=== PATIENT | female | born 1950 | race Caucasian/White ===

== ENCOUNTER 2017-03-12 11:08 | Emergency (ER) | payer MEDICAID ==
[~2017-03-12] VITALS: Ht 160 cm; Wt 78.0 kg
[~2017-03-12 11:08] MED LIST: ASPI-664 PO; ATOR20TA38 PO; AZIT250T94 PO; DICL100G37 TOP; GUAI-637 PO; LISI-329 PO; LORA10TA3 PO; NAPR-260 PO; NAPR220T30 PO; OXYM15SP34 NASAL; TRAM50TA2 PO
[2017-03-12 11:13] VITALS: Ht 160 cm; Wt 78.0 kg
[2017-03-12] MEDS ORDERED: ONDANSETRON 4 MG INJ IV STA (11:35)
[2017-03-12] MEDS ORDERED: SOD CHLORIDE 0.9% 1,000 ML IV STA (11:35)
[2017-03-12] MEDS ORDERED: KETOROLAC 15 MG INJ IV STA (11:35)
[2017-03-12 12:03] LABS: ADD SCAN DIFF NO
[2017-03-12 12:16] LABS: BASOPHILS % 0.4 % (0.0-2.0); EOSINOPHILS # 0.2 10^3/ul (0.0-0.5); EOSINOPHILS % 2.5 % (0.0-7.0); HEMATOCRIT 38.3 % (37.0-47.0); HEMOGLOBIN 12.7 g/dl (12.0-16.0); LYMPHOCYTES # 2.4 10^3/ul (0.8-2.9); MEAN CORPUSCULAR HEMOGLOBIN 30.5 pg (29.0-33.0); MEAN CORPUSCULAR HGB CONC 33.2 g/dl (32.0-37.0); MEAN CORPUSCULAR VOLUME 92.1 fl (82.0-101.0); MEAN PLATELET VOLUME 9.7 fl (7.4-10.4); MONOCYTE # 0.5 10^3/ul (0.3-0.9); MONOCYTES % 6.4 % (0.0-11.0); NEUTROPHIL # 4.2 10^3/ul (1.6-7.5); NEUTROPHILS % 57.4 % (39.0-77.0); PLATELET COUNT 313 10^3/UL (140-415); RED BLOOD COUNT 4.16 10^6/ul (4.20-5.40); RED CELL DISTRIBUTION WIDTH 12.3 % (11.5-14.5); WHITE BLOOD COUNT 7.3 10^3/ul (4.8-10.8)
[2017-03-12 12:19] LABS: ALANINE AMINOTRANSFERASE 27 IU/L (13-69); ALBUMIN 4.7 g/dl (3.3-4.9); ALBUMIN/GLOBULIN RATIO 1.17; ALKALINE PHOSPHATASE 65 IU/L (42-121); ANION GAP 15 (8-16); ASPARTATE AMINO TRANSFERASE 33 IU/L (15-46); BILIRUBIN,INDIRECT 0.2 mg/dl (0-1.1); BILIRUBIN,TOTAL 0.2 mg/dl (0.2-1.3); BLOOD UREA NITROGEN 15 mg/dl (7-20); CALCIUM 9.7 mg/dl (8.4-10.2); CARBON DIOXIDE 23 mmol/L (21-31); CHLORIDE 102 mmol/L (97-110); CREATININE 0.74 mg/dl (0.44-1.00); GLUCOSE 115 mg/dl (70-220); POTASSIUM 4.5 mmol/L (3.5-5.1); SODIUM 135 mmol/L (135-144); TOTAL PROTEIN 8.7 g/dl (6.1-8.1)
[2017-03-12 12:25] LABS: ADD UMIC NO; URINE BILIRUBIN (Dip) NEGATIVE (NEGATIVE); URINE BLOOD (Dip) NEGATIVE (NEGATIVE); URINE COLOR LT. YELLOW (YELLOW); URINE GLUCOSE (Dip) NEGATIVE (NEGATIVE); URINE KETONES (Dip) NEGATIVE (NEGATIVE); URINE LEUKOCYTE ESTERASE (Dip) NEGATIVE (NEGATIVE); URINE NITRITE (Dip) NEGATIVE (NEGATIVE); URINE TOTAL PROTEIN (Dip) NEGATIVE (NEGATIVE); URINE UROBILINOGEN (Dip) 0.2 E.U./dL (0.1-1.0)
[2017-03-12 12:35] LABS: TROPONIN-I < 0.012 ng/ml (0.00-0.12)
[2017-03-12] MEDS ORDERED: MELO-109 PO (13:23)
[2017-03-12] MEDS ORDERED: ALPR0.5T PO (13:23)
--- NOTE | 2017-03-12 13:26 | ERD ---
ER Documentation Chief Complaint Date/Time DATE: 03/12/17 TIME: 13:24 Chief Complaint DIZZINESS,ANDRADE,NAUSEA, NECK PAIN X 3 DAYS HPI 66-year-old woman complains of 3 days of dizziness headache nausea as well as sharp nonexertional nonradiating chest pain. She has had all these symptoms in the past usually associated with anxiety, and states she feels anxious today as well. Her chest pain is sharp nonexertional nonradiating and has been intermittent daily for the last 7 days. She has had no neck pain or stiffness, no fevers or chills, no weakness in her arms or legs, no suicidal homicidal ideation. She has been using ibuprofen and Tylenol at home without relief. She also uses aspirin daily. ROS All systems reviewed and are negative except as per history of present illness. Medications Home Meds Active Scripts Meloxicam* (Meloxicam*) 7.5 Mg Tablet, 7.5 MG PO DAILY for PAIN, #20 TAB Prov:ALEA CRAFT MD 03/12/17 Alprazolam* (Xanax*) 0.5 Mg Tab, 0.5 MG PO TID for ANXIETY, #15 TAB Prov:ALEA CRAFT MD 03/12/17 Reported Medications Lisinopril-Hydrochlorothiazide (Lisinopril-HCTZ) 20-25 Mg Tab, 1 TAB PO DAILY, TAB 02/06/15 Discontinued Reported Medications Oxymetazoline Hcl* (Afrin [place]*) 0.05% - 15 Ml [place], 2 SPRAYS NASAL BID, SPRAY to each nostril 02/06/15 Naproxen* (Naproxen*) 220 Mg Tablet, 220 MG PO BID WITH MEALS, TAB 02/06/15 Discontinued Scripts Naproxen* (Naprosyn*) 500 Mg Tablet, 500 MG PO BID Y for PAIN AND/OR INFLAMMATION for 15 Days, #30 TAB 0 Refills Prov:ELLIS GUTIERREZ PA-C 06/28/16 Naproxen* (Naprosyn*) 500 Mg Tablet, 500 MG PO BID Y for PAIN AND/OR INFLAMMATION, #30 TAB Prov:CRISTIAN ANDERS PA-C 02/25/16 Diclofenac Sodium* (Voltaren* Gel) 1% -100 Gm Gel, 2 GM TOP QID, #1 TUB Prov:CRISTIAN ANDERS PA-C 02/25/16 Loratadine* (Loratadine*) 10 Mg Tab, 10 MG PO DAILY for 30 Days, TAB Prov:MARKDIVYA 11/11/15 Guaifenesin (Guaifenesin) 100 Mg/5 Ml Syrup, 200 MG PO Q4H Y for cough for 30 Days Prov:MARKDIVYA 11/11/15 Azithromycin* (Zithromax*) 250 Mg Tab, 250 MG PO DAILY for 5 Days, TAB Prov:BRIGIDDIVYA PEREZ 11/11/15 Atorvastatin Calcium* (Atorvastatin Calcium*) 20 Mg Tab, 40 MG PO HS, #30 3 Refills Prov:ROX PLASCENCIA 08/14/15 Aspirin* (Aspirin* EC) 81 Mg Tabec, 81 MG PO DAILY, #30 3 Refills Prov:ROX PLASCENCIA 08/14/15 Tramadol HCl (Tramadol HCl) 50 Mg Tab, 50 MG PO BID, #20 TAB Prov:LYNDA RIVERO PA-C 08/03/15 Allergies Allergies: Coded Allergies: No Known Allergy (Unverified , 11/11/15) PMhx/Soc Hypertension, anxiety, history of SD, coronary artery disease, dizziness History of Surgery: Yes ("to not have kids") Anesthesia Reaction: No Hx Neurological Disorder: Yes (stroke) Hx Respiratory Disorders: No Hx Cardiac Disorders: Yes ("heart problems" HTN) Hx Psychiatric Problems: No Hx Miscellaneous Medical Probl: Yes Hx Alcohol Use: No Hx Substance Use: No Hx Tobacco Use: No Smoking Status: Never smoker FmHx Family History: coronary disease Physical Exam Vitals Vital Signs Date Time Temp Pulse Resp B/P Pulse Ox O2 Delivery O2 Flow Rate FiO2 03/12/17 13:55 97.9 62 18 110/65 99 Room Air 03/12/17 11:13 98.1 86 18 134/79 99 Physical Exam GENERAL: Well-developed, well-nourished, well-hydrated, anxious HEENT: Moist mucous membranes, pink conjunctiva, no cervical spine tenderness or step-off deformities, no goiter, no jaundice or icterus, extraocular movements intact without pain. No submandibular induration, and no pharyngeal erythema NEURO: Alert and oriented 3, cranial nerves II through XII intact bilaterally, pupils equal round reactive to light, no focal deficits or facial asymmetry, sensation intact distally Strength 5/5 in upper and lower extremities bilaterally CARDIAC: Regular rate and rhythm, no murmurs rubs or gallops LUNGS: Clear bilaterally no wheezing crackles or stridor ABDOMEN: Soft nontender, no guarding, no rigidity, no rebound, no psoas sign no obturator sign. Normoactive bowel sounds SKIN: Warm and dry to touch, no abrasions, contusions, or hematomas, no lacerations, no ecchymosis, no target lesions, and without ulcers EXTREMITIES: No clubbing cyanosis or edema, calves are bilaterally symmetrical, no Homans sign, no popliteal cord sign. Distal pulses equal and bilateral PSYCH: Anxious Result Diagram: 03/12/17 1145 03/12/17 1145 Results 24 hrs Laboratory Tests Test 03/12/17 11:45 White Blood Count 7.310^3/ul Red Blood Count 4.1610^6/ul Hemoglobin 12.7g/dl Hematocrit 38.3% Mean Corpuscular Volume 92.1fl Mean Corpuscular Hemoglobin 30.5pg Mean Corpuscular Hemoglobin Concent 33.2g/dl Red Cell Distribution Width 12.3% Platelet Count 94986^3/UL Mean Platelet Volume 9.7fl Neutrophils % 57.4% Lymphocytes % 33.0% Monocytes % 6.4% Eosinophils % 2.5% Basophils % 0.4% Nucleated Red Blood Cells % 0.0/100WBC Neutrophils # 4.210^3/ul Lymphocytes # 2.410^3/ul Monocytes # 0.510^3/ul Eosinophils # 0.210^3/ul Basophils # 0.010^3/ul Nucleated Red Blood Cells # 0.010^3/ul Urine Color LT. YELLOW Urine Clarity CLEAR Urine pH 5.5 Urine Specific Orange <=1.005 Urine Ketones NEGATIVE Urine Nitrite NEGATIVE Urine Bilirubin NEGATIVE Urine Urobilinogen 0.2 E.U./dL Urine Leukocyte Esterase NEGATIVE Urine Hemoglobin NEGATIVE Urine Glucose NEGATIVE% Urine Total Protein NEGATIVE Sodium Level 135mmol/L Potassium Level 4.5mmol/L Chloride Level 102mmol/L Carbon Dioxide Level 23mmol/L Anion Gap 15 Blood Urea Nitrogen 15mg/dl Creatinine 0.74mg/dl Glucose Level 115mg/dl Calcium Level 9.7mg/dl Total Bilirubin 0.2mg/dl Direct Bilirubin 0.00mg/dl Indirect Bilirubin 0.2mg/dl Aspartate Amino Transf (AST/SGOT) 33IU/L Alanine Aminotransferase (ALT/SGPT) 27IU/L Alkaline Phosphatase 65IU/L Troponin I < 0.012ng/ml Total Protein 8.7g/dl Albumin 4.7g/dl Globulin 4.00g/dl Albumin/Globulin Ratio 1.17 Lipase 143U/L Current Medications Medications (Trade) Dose Ordered Sig/Saritha Route PRN Reason Start Time Stop Time Status Last Admin Dose Admin Sodium Chloride (NS) 1,000 ml @ 1,000 mls/hr Q1H STAT IV 03/12/17 11:35 03/12/17 12:34 DC 03/12/17 12:02 Ondansetron HCl (Zofran Inj) 4 mg ONCE STAT IV 03/12/17 11:35 03/12/17 11:37 DC 03/12/17 12:03 Ketorolac Tromethamine (Toradol) 15 mg ONCE STAT IV 03/12/17 11:35 03/12/17 11:37 DC 03/12/17 12:03 Procedures/MDM Patient was placed on [place] rhythm strip revealed a sinus rhythm at about 80 bpm with upright P and T waves. Patient was afebrile. EKG performed, read by me: 85 bpm, normal sinus rhythm, normal axis, no acute ST segment changes, narrow QRS complex, with good R-wave progression in precordial leads. I administered 1 L normal saline intravenously, Zofran 4 mg IV, and Toradol 50 mg IV with good response. CBC and electrolytes are normal, liver function tests were normal, troponin was negative. Urine analysis was negative for infection. Differential diagnoses considered, included but not limited to acute coronary syndrome, pulmonary embolism, aortic dissection, abdominal aortic aneurysm, sepsis, stroke, meningitis, encephalitis, pneumonia, appendicitis, cholecystitis , bowel obstruction, pyelonephritis, nephrolithiasis, cystitis, as well as metabolic, hematologic, and electrolyte abnormalities. As well as abscess, cellulitis, fractures, and dislocations. Patient feels much better at this time, and vital signs are normal, symptoms have improved. I did give strict instructions to return to the ED if symptoms continue or worsen, patient will otherwise follow-up with primary care physician. Patient understood instructions and agreed to plan. Departure Diagnosis: Primary Impression: Dizziness Additional Impressions: Headache Headache type: unspecified Headache chronicity pattern: acute headache Intractability: not intractable Qualified Code: R51 - Acute nonintractable headache, unspecified headache type Chest pain Chest pain type: unspecified Qualified Code: R07.9 - Chest pain, unspecified type Condition: Good Patient Instructions: Anxiety Reaction, Chest Pain, Uncertain Cause, Dizziness , Unk Cause ALEA CRAFT MD Mar 12, 2017 13:26
[2017-03-12 13:55] VITALS: BP 110/65; PULSE 62; RESP 18; TEMP 97.9
== END 2017-03-12 13:56 | disposition home or self-care (01) ==
LOC: E/R 11:08
DX: R42 Dizziness and giddiness (principal); R51 Headache; R07.9 Chest pain, unspecified; I10 Essential (primary) hypertension; R11.0 Nausea; Z79.82 Long term (current) use of aspirin
CPT/HCPCS: 36415; 80053; 81003; 83690; 84484; 85025; 93005; 96374; 96375; J1885; J2405; J7030; Z7502

== ENCOUNTER 2017-06-17 10:41 | Emergency (ER) | payer MEDICAID ==
[~2017-06-17] VITALS: Ht 160 cm; Wt 70.0 kg
[~2017-06-17 10:41] MED LIST changes: +ALPR0.5T PO; -ASPI-664 PO; -ATOR20TA38 PO; -AZIT250T94 PO; -DICL100G37 TOP; -GUAI-637 PO; -LORA10TA3 PO; +MELO-109 PO; -NAPR-260 PO; -NAPR220T30 PO; -OXYM15SP34 NASAL; -TRAM50TA2 PO
[2017-06-17 10:45] VITALS: Ht 160 cm; Wt 70.0 kg
[2017-06-17] MEDS ORDERED: ASPIRIN 325 MG TAB PO STA (11:01)
[2017-06-17] MEDS ORDERED: SOD CHLORIDE 0.9% 1,000 ML IV STA (11:01)
--- NOTE | 2017-06-17 11:33 | RADRPT ---
PROCEDURE: Chest x-ray CLINICAL INDICATION: Stroke TECHNIQUE: Chest single view COMPARISON: 06/28/2016 FINDINGS: The heart is normal in size. The pulmonary vessels are normal in caliber. The lungs are clear. Th e costophrenic angles are sharp. The visualized bony thorax is unremarkable. IMPRESSION: No acute cardiopulmonary disease. Stable atherosclerotic aortic calcification RPTAT: HH .Bruno Dolan MD, MD Date Time Electronically viewed and signed by .Bruno Dolan MD, MD on 06/17/2017 11:32 .W/
--- NOTE | 2017-06-17 12:04 | RADRPT ---
PROCEDURE: CT Brain without. CLINICAL INDICATION: Right arm numbness. TECHNIQUE: A CT of the brain was performed on multidetector high-resolution CT scanner utilizing a xial sections from the skull base through the vertex without contrast. The scan was reviewed in sof t tissue brain and high frequency resolution bone algorithm windows. Images were reviewed on a high -resolution PACS workstation. One or more the following does reduction techniques were utilized: Aut omated exposure control, adjustment of the mA/ or kV according to patient's size, or use of iterativ e reconstruction technique. The exam CTDI = 44.50 mGy and the DLP = 630.2 mGy-cm. COMPARISON: Brain CT 06/28/2016. FINDINGS: The ventricles and sulci are mildly prominent indicative of volume loss. There is no intracranial he morrhage, mass effect or midline shift. No abnormal intra-axial or extra-axial fluid collections ar e seen. The quiroz/white matter differentiation is preserved. Nonspecific 4 mm calcification in the le ft parietal lobe is again noted. There are mild scattered foci of hypoattenuation in the white matter, which are nonspecific in etiol ogy but likely reflect chronic small vessel ischemic changes. There are mild intracranial vascular calcifications consistent with atherosclerosis. The visualized paranasal sinuses mild mucoid secreti on in the left sphenoid and frontal sinuses. The mastoid air cells are essentially clear. IMPRESSION: 1. No acute intracranial hemorrhage, transcortical infarction or mass effect. If clinical concern p ersists consider brain MRI. 2. Mild intracranial atherosclerosis and chronic small vessel ischemic changes. 3. Mild generalized cerebral volume loss. RPTAT: HH .Marla Dockery MD, MD Date Time Electronically viewed and signed by .Marla Dockery MD, MD on 06/17/2017 12:03 .N/
[2017-06-17 12:09] LABS: BASOPHILS % 0.6 % (0.0-2.0); EOSINOPHILS # 0.1 10^3/ul (0.0-0.5); EOSINOPHILS % 1.3 % (0.0-7.0); HEMATOCRIT 37.8 % (37.0-47.0); HEMOGLOBIN 12.6 g/dl (12.0-16.0); LYMPHOCYTES # 2.1 10^3/ul (0.8-2.9); LYMPHOCYTES % 30.4 % (15.0-51.0); MEAN CORPUSCULAR HEMOGLOBIN 30.4 pg (29.0-33.0); MEAN CORPUSCULAR HGB CONC 33.3 g/dl (32.0-37.0); MEAN CORPUSCULAR VOLUME 91.3 fl (82.0-101.0); MEAN PLATELET VOLUME 10.1 fl (7.4-10.4); MONOCYTE # 0.5 10^3/ul (0.3-0.9); MONOCYTES % 7.5 % (0.0-11.0); NEUTROPHIL # 4.2 10^3/ul (1.6-7.5); NEUTROPHILS % 59.9 % (39.0-77.0); PLATELET COUNT 285 10^3/UL (140-415); RED BLOOD COUNT 4.14 10^6/ul (4.20-5.40); RED CELL DISTRIBUTION WIDTH 12.1 % (11.5-14.5)
[2017-06-17 12:15] VITALS: TEMP 98.2
[2017-06-17 12:21] LABS: ALANINE AMINOTRANSFERASE 34 IU/L (13-69); ALBUMIN 4.6 g/dl (3.3-4.9); ALBUMIN/GLOBULIN RATIO 1.31; ALKALINE PHOSPHATASE 68 IU/L (42-121); ANION GAP 16 (8-16); ASPARTATE AMINO TRANSFERASE 25 IU/L (15-46); BILIRUBIN,INDIRECT 0.2 mg/dl (0-1.1); BILIRUBIN,TOTAL 0.2 mg/dl (0.2-1.3); BLOOD UREA NITROGEN 15 mg/dl (7-20); CALCIUM 9.7 mg/dl (8.4-10.2); CARBON DIOXIDE 26 mmol/L (21-31); CHLORIDE 102 mmol/L (97-110); CREATININE 0.81 mg/dl (0.44-1.00); GLUCOSE 93 mg/dl (70-220); INR 0.92; POTASSIUM 4.1 mmol/L (3.5-5.1); PROTIME 12.4 Sec (12.2-14.2); SODIUM 140 mmol/L (135-144); TOTAL PROTEIN 8.1 g/dl (6.1-8.1)
[2017-06-17 12:22] LABS: PARTIAL THROMBOPLASTIN TIME 29.3 Sec (25.0-35.0)
[2017-06-17 12:37] LABS: TROPONIN-I < 0.012 ng/ml (0.00-0.12)
[2017-06-17] MEDS ORDERED: MECL-77 PO (13:39)
[2017-06-17] MEDS ORDERED: ALPR0.5T PO (13:39)
--- NOTE | 2017-06-17 13:48 | ERD ---
ER Documentation Chief Complaint Date/Time DATE: 06/17/17 TIME: 13:45 Chief Complaint Multiple complaints/vertigo HPI This is a 67-year-old female who complains of 1 week of vertigo. She states that last week all of a sudden she got a severe sense of the room spinning. She says if she bends forward or turns her head she gets a spinning sensation but if she remains completely still it will go away. She has no numbness weakness to the extremities no headache no speech change or visual change. She does complain that the back of her head of the occipital region feels numb to her. She also complains of some left paraspinal cervical pain when she turns her neck. She said yesterday she had 2 seconds of chest pain that resolved without any other symptoms. She has no cardiac history. She has no nausea vomiting no diarrhea no fever stiff neck photophobia, no abdominal pain ROS All systems reviewed and are negative except as per history of present illness. Medications Home Meds Active Scripts Meclizine Hcl* (Meclizine Hcl*) 25 Mg Tablet, 25 MG PO TID, #30 TAB Prov:ROSETTE HITCHCOCK DO 06/17/17 Alprazolam* (Xanax*) 0.5 Mg Tab, 0.5 MG PO TID, #20 TAB Prov:ROSETTE HITCHCOCK DO 06/17/17 Meloxicam* (Meloxicam*) 7.5 Mg Tablet, 7.5 MG PO DAILY for PAIN, #20 TAB Prov:ALEA CRAFT MD 03/12/17 Alprazolam* (Xanax*) 0.5 Mg Tab, 0.5 MG PO TID for ANXIETY, #15 TAB Prov:ALEA CRAFT MD 03/12/17 Reported Medications Lisinopril-Hydrochlorothiazide (Lisinopril-HCTZ) 20-25 Mg Tab, 1 TAB PO DAILY, TAB 02/06/15 Allergies Allergies: Coded Allergies: No Known Allergy (Unverified , 11/11/15) PMhx/Soc History of Surgery: Yes (tubal ligation) Anesthesia Reaction: No Hx Neurological Disorder: Yes (stroke) Hx Respiratory Disorders: No Hx Cardiac Disorders: Yes ("heart problems" HTN) Hx Psychiatric Problems: No Hx Miscellaneous Medical Probl: Yes Hx Alcohol Use: No Hx Substance Use: No Hx Tobacco Use: No Smoking Status: Never smoker FmHx Family History: No coronary disease Physical Exam Vitals Vital Signs Date Time Temp Pulse Resp B/P Pulse Ox O2 Delivery O2 Flow Rate FiO2 06/17/17 12:15 98.2 75 20 132/61 98 Room Air 06/17/17 10:45 98.2 75 20 186/79 99 Physical Exam Const: Well-developed, well-nourished Head: Atraumatic, normocephalic Eyes: Normal Conjunctiva, PERRLA, EOMI, normal sclera, no nystagmus ENT: Normal External Ears, Nose and Mouth, moist mucus membranes. Neck: Full range of motion. No meningismus, no lymphadenopathy. Resp: Clear to auscultation bilaterally, no wheezing, rhonchi, rales Cardio: Regular rate and rhythm, no murmurs, S1 S2 present Abd: Soft, non tender x 4, non distended. Normal bowel sounds, no guarding or rebound, no pulsitile abdominal masses or bruits Skin: No petechiae or rashes, no ecchymosis , no maculopapular rash Back: No midline or flank tenderness Ext: No cyanosis, or edema, FROM x 4, normal inspection, neurovascularly intact x 4 Neur: Awake and alert, STR 5/5 x 4, sensation intact x 4, no focal findings, cerebellum intact Psych: Normal Mood and Affect, bit histrionic Result Diagram: 06/17/17 1145 06/17/17 1145 Results 24 hrs Laboratory Tests Test 06/17/17 11:45 White Blood Count 7.010^3/ul Red Blood Count 4.1410^6/ul Hemoglobin 12.6g/dl Hematocrit 37.8% Mean Corpuscular Volume 91.3fl Mean Corpuscular Hemoglobin 30.4pg Mean Corpuscular Hemoglobin Concent 33.3g/dl Red Cell Distribution Width 12.1% Platelet Count 91250^3/UL Mean Platelet Volume 10.1fl Neutrophils % 59.9% Lymphocytes % 30.4% Monocytes % 7.5% Eosinophils % 1.3% Basophils % 0.6% Nucleated Red Blood Cells % 0.0/100WBC Neutrophils # 4.210^3/ul Lymphocytes # 2.110^3/ul Monocytes # 0.510^3/ul Eosinophils # 0.110^3/ul Basophils # 0.010^3/ul Nucleated Red Blood Cells # 0.010^3/ul Prothrombin Time 12.4Sec Prothrombin Time Ratio 1.0 INR International Normalized Ratio 0.92 Activated Partial Thromboplast Time 29.3Sec Sodium Level 140mmol/L Potassium Level 4.1mmol/L Chloride Level 102mmol/L Carbon Dioxide Level 26mmol/L Anion Gap 16 Blood Urea Nitrogen 15mg/dl Creatinine 0.81mg/dl Glucose Level 93mg/dl Calcium Level 9.7mg/dl Total Bilirubin 0.2mg/dl Direct Bilirubin 0.00mg/dl Indirect Bilirubin 0.2mg/dl Aspartate Amino Transf (AST/SGOT) 25IU/L Alanine Aminotransferase (ALT/SGPT) 34IU/L Alkaline Phosphatase 68IU/L Troponin I < 0.012ng/ml Total Protein 8.1g/dl Albumin 4.6g/dl Globulin 3.50g/dl Albumin/Globulin Ratio 1.31 Current Medications Medications (Trade) Dose Ordered Sig/Saritha Route PRN Reason Start Time Stop Time Status Last Admin Dose Admin Sodium Chloride (NS) 1,000 ml @ 1,000 mls/hr Q1H STAT IV 06/17/17 11:01 06/17/17 12:00 DC 06/17/17 12:02 Aspirin (Aspirin) 325 mg ONCE STAT PO 06/17/17 11:01 06/17/17 11:06 DC 06/17/17 12:02 Meclizine HCl (Antivert) 25 mg ONCE ONCE PO 06/17/17 14:00 06/17/17 14:01 Procedures/MDM PROCEDURE: CT Brain without. CLINICAL INDICATION: Right arm numbness. TECHNIQUE: A CT of the brain was performed on multidetector high-resolution CT scanner utilizing axial sections from the skull base through the vertex without contrast. The scan was reviewed in soft tissue brain and high frequency resolution bone algorithm windows. Images were reviewed on a high- resolution PACS workstation. One or more the following does reduction techniques were utilized: Automated exposure control, adjustment of the mA/ or kV according to patient's size, or use of iterative reconstruction technique. The exam CTDI = 44.50 mGy and the DLP = 630.2 mGy-cm. COMPARISON: Brain CT 06/28/2016. FINDINGS: The ventricles and sulci are mildly prominent indicative of volume loss. There is no intracranial hemorrhage, mass effect or midline shift. No abnormal intra- axial or extra-axial fluid collections are seen. The quiroz/white matter differentiation is preserved. Nonspecific 4 mm calcification in the left parietal lobe is again noted. There are mild scattered foci of hypoattenuation in the white matter, which are nonspecific in etiology but likely reflect chronic small vessel ischemic changes. There are mild intracranial vascular calcifications consistent with atherosclerosis. The visualized paranasal sinuses mild mucoid secretion in the left sphenoid and frontal sinuses. The mastoid air cells are essentially clear. IMPRESSION: 1. No acute intracranial hemorrhage, transcortical infarction or mass effect. If clinical concern persists consider brain MRI. 2. Mild intracranial atherosclerosis and chronic small vessel ischemic changes. 3. Mild generalized cerebral volume loss. RPTAT: HH .Marla Dockery MD, MD Date Time Electronically viewed and signed by .Marla Dockery MD, MD on 06/17/2017 12: 03 .N/ CC: ROSETTE HITCHCOCK DO PROCEDURE: Chest x-ray CLINICAL INDICATION: Stroke TECHNIQUE: Chest single view COMPARISON: 06/28/2016 FINDINGS: The heart is normal in size. The pulmonary vessels are normal in caliber. The lungs are clear. The costophrenic angles are sharp. The visualized bony thorax is unremarkable. IMPRESSION: No acute cardiopulmonary disease. Stable atherosclerotic aortic calcification RPTAT: .Bruno Dolan MD, MD Date Time Electronically viewed and signed by .Bruno Dolan MD, MD on 06/17/2017 11:32 .W/ CC: ROSETTE HITCHCOCK DO The patient says she feels better. I feel the patient has peripheral vertigo as a cause of her spinning sensation. Will provide her with some Antivert at home. The daughter states that her mom has been very anxious lately and is requesting antianxiety medicine. The patient has an anxiety attacks in the past and is having some now. Patient's cardiac workup is negative. She has a normal EKG do not feel her chest pain was cardiac in origin yesterday EKG: Rate/Rhythm: Normal Sinus Rhythm,NL intervals QRS, ST, QT: NORMAL [place], QRS, QT] Impression: NORMAL EKG Departure Diagnosis: Primary Impression: Vertigo Additional Impression: Anxiety Condition: Stable Patient Instructions: Anxiety Reaction, Vertigo, Unspecified ROSETTE HITCHCOCK DO Jun 17, 2017 13:48
[2017-06-17] MEDS ORDERED: MECLIZINE 12.5 MG TAB PO ONE (14:00)
[2017-06-17 14:06] VITALS: BP 124/68; PULSE 72; RESP 20
== END 2017-06-17 14:08 | disposition home or self-care (01) ==
LOC: E/R 10:41
DX: R42 Dizziness and giddiness (principal); R40.2252 Coma scale, best verbal response, oriented, at arrival to emergency department; F41.9 Anxiety disorder, unspecified; I10 Essential (primary) hypertension; R07.9 Chest pain, unspecified; R40.2142 Coma scale, eyes open, spontaneous, at arrival to emergency department; R40.2362 Coma scale, best motor response, obeys commands, at arrival to emergency department
CPT/HCPCS: 70450; 71010; 80053; 84484; 85025; 85610; 85730; 93005; J7030; Z7610; 36415

== ENCOUNTER 2019-04-28 13:59 | Emergency (ER) | payer MEDICAID ==
[~2019-04-28] VITALS: Ht 160 cm; Wt 76.9 kg
[~2019-04-28 13:59] MED LIST changes: +MECL-77 PO; -MELO-109 PO; +MELO7.5T38 PO
[2019-04-28 14:02] VITALS: BP 139/67; PULSE 78; RESP 18; Ht 160 cm; Wt 76.9 kg
[2019-04-28] MEDS ORDERED: ACETAMINOPHEN 325 MG TAB PO ONE (15:30)
[2019-04-28] MEDS ORDERED: IBUP-1542 PO (16:34)
--- NOTE | 2019-04-28 16:37 | ERD ---
ER Documentation Chief Complaint Chief Complaint pelvic pain radaiting to back x few days with painful urination HPI 69-year-old female presents with pelvic pain rating to the back for the last few days. She also states she has painful urination. She has a history of uterine prolapse. She is awaiting authorization for surgery. Denies fevers, vomiting, flank pain, bowel bladder incontinence, numbness, deficits. Denies diarrhea, blood. ROS All systems reviewed and are negative except as per history of present illness. Medications Home Meds Active Scripts Ibuprofen* (Motrin*) 600 Mg Tab, 600 MG PO Q6, #15 TAB Prov:ANA DIAMOND MD 04/28/19 Meclizine Hcl* (Meclizine Hcl*) 25 Mg Tablet, 25 MG PO TID, #30 TAB Prov:ROSETTE HITCHCOCK DO 06/17/17 Alprazolam* (Xanax*) 0.5 Mg Tab, 0.5 MG PO TID, #20 TAB Prov:ROSETTE HITCHCOCK DO 06/17/17 Meloxicam* (Meloxicam*) 7.5 Mg Tablet, 7.5 MG PO DAILY for PAIN, #20 TAB Prov:ALEA CRAFT MD 03/12/17 Alprazolam* (Xanax*) 0.5 Mg Tab, 0.5 MG PO TID for ANXIETY, #15 TAB Prov:ALEA CRAFT MD 03/12/17 Reported Medications Lisinopril-Hydrochlorothiazide (Lisinopril-HCTZ) 20-25 Mg Tab, 1 TAB PO DAILY, TAB 02/06/15 Allergies Allergies: Coded Allergies: No Known Allergy (Unverified , 11/11/15) PMhx/Soc History of Surgery: Yes (tubal ligation) Anesthesia Reaction: No Hx Neurological Disorder: Yes (mini stroke) Hx Respiratory Disorders: No Hx Cardiac Disorders: Yes ("heart problems" HTN) Hx Psychiatric Problems: No Hx Miscellaneous Medical Probl: Yes (prolapse uterus dx 2018,seasonal allergy) Hx Alcohol Use: No Hx Substance Use: No Hx Tobacco Use: No Smoking Status: Never smoker FmHx Family History: No diabetes, No coronary disease, No other Physical Exam Vitals Vital Signs Date Temp Pulse Resp B/P (MAP) Pulse Ox O2 O2 Flow FiO2 Time Delivery Rate 04/28/19 98.1 78 18 139/67 98 14:02 (91) Physical Exam Const: No acute distress Head: Atraumatic Eyes: Normal Conjunctiva ENT: Normal External Ears, Nose and Mouth. Neck: Full range of motion. No meningismus. Resp: Clear to auscultation bilaterally Cardio: Regular rate and rhythm, no murmurs Abd: Soft, non tender, non distended. Normal bowel sounds. Minimal suprapubic pain. Tenderness of lumbar paraspinous muscles. No tenderness at McBurney's point no Lux sign. Pelvic exam with shader and toner shows no active prolapse. No adnexal masses. Mild generalized tenderness in the left lower abdomen without rebound or masses. Skin: No petechiae or rashes Back: No midline or flank tenderness Ext: No cyanosis, or edema Neur: Awake and alert Psych: Normal Mood and Affect Results 24 hrs Laboratory Tests Test 04/28/19 14:40 Urine Color YELLOW Urine Clarity CLEAR Urine pH 6.0 Urine Specific [place] 1.016 Urine Ketones NEGATIVE mg/dL Urine Nitrite NEGATIVE mg/dL Urine Bilirubin NEGATIVE mg/dL Urine Urobilinogen NEGATIVE mg/dL Urine Leukocyte Esterase NEGATIVE Rena/ul Urine Hemoglobin NEGATIVE mg/dL Urine Glucose NEGATIVE mg/dL Urine Total Protein NEGATIVE mg/dl Current Medications Medications Dose Sig/Saritha Start Time Status Last (Trade) Ordered Route PRN Stop Time Admin Dose Reason Admin 650 mg ONCE ONCE 04/28/19 DC 04/28/19 Acetaminophen PO 15:30 04/28/19 15:35 (Tylenol 15:31 Tab) Procedures/MDM Urine is negative. CT negative of abdomen and pelvis. Patient presents with lower abdominal pain pelvic pain rating the back of uncertain etiology. She has no signs of appendicitis, aortic dissection or aneurysm, genitourinary etiology, ovarian torsion, surgical abdomen. She may have muscle skeletal back pain radiating to the pelvis. She will be treated with ibuprofen, further observation at home and return precautions. The patient was stable with no new complaints during the ER course. Clinically, there is no current evidence to suggest meningitis, sepsis, acute abdomen, pneumonia, stroke, acute coronary syndrome, pulmonary embolism, aortic dissection or any other emergent condition appearing to require further evaluation or hospitalization. Patient counseled regarding my diagnostic impression and care plan. Prior to discharge all questions answered. Pt agrees with treatment plan and understands strict return precautions. Pt is instructed to follow up with primary care provider within 24- 48 hours. Precautionary instructions provided including instructions to return to the ER if not improving or for any worsening or changing symptoms or concerns. Disclaimer: Inadvertent spelling and grammatical errors are likely due to EHR/dictation software use and do not reflect on the overall quality of patient care. Also, please note that the electronic time recorded on this note does not necessarily reflect the actual time of the patient encounter. Departure Diagnosis: Primary Impression: Acute pain in female pelvis Condition: Stable Patient Instructions: Pelvic Pain, Unknown Cause Referrals: NO PRIMARY,CARE PHYSICIAN (PCP) Additional Instructions: All examinations normal today. Recheck for any worsening symptoms with primary doctor. Examines normal hoy. Cheque otro vez con [place] doctor primario en el proximo [place] or regresa para mas o nueva simptomas. ANA DIAMOND MD Apr 28, 2019 16:37
== END 2019-04-28 16:48 | disposition home or self-care (01) ==
LOC: FTE 13:59
DX: R10.2 Pelvic and perineal pain (principal); I10 Essential (primary) hypertension
CPT/HCPCS: 74176; 81003; Z7502; Z7610

== ENCOUNTER 2019-05-31 19:53 | Emergency (ER) | payer MEDICAID ==
[~2019-05-31] VITALS: Ht 160 cm; Wt 77.8 kg
[~2019-05-31 19:53] MED LIST changes: +IBUP-1542 PO
[2019-05-31 20:02] VITALS: BP 140/66; PULSE 79; RESP 16; Ht 160 cm; Wt 77.8 kg
[2019-05-31] MEDS ORDERED: KETOROLAC 30 MG INJ IM STA (20:54)
[2019-05-31] MEDS ORDERED: TRAM50TA2 PO (20:56)
[2019-05-31] MEDS ORDERED: IBUP-1542 PO (20:56)
--- NOTE | 2019-05-31 20:59 | ERD ---
ER Documentation Chief Complaint Chief Complaint pt had a trip and fall R wrist pain and swelling, took Aleve 500mg x2 1730 HPI 69-year-old female with past medical history of hypertension who presents with complaint of right wrist and forearm pain after sustaining a pole fall this morning. States she tripped and fell and landed on the right wrist. Also with complaint of left knee pain. Despite knee pain she has been able to ambulate although with some pain and discomfort. She otherwise denies LOC, head trauma or any other injuries. Has had worsening pain and swelling to affected limb. Tried Aleve which did not help much with her symptoms. She otherwise is without complaint. At time of evaluation patient able to take multiple steps throughout examination room with some difficulty. ROS All systems reviewed and are negative except as per history of present illness. Medications Home Meds Active Scripts Tramadol HCl (Tramadol HCl) 50 Mg Tablet, 50 MG PO Q6 PRN for PAIN, #20 TAB Prov:WILMA DE PA-C 05/31/19 Ibuprofen* (Motrin*) 600 Mg Tab, 600 MG PO Q6H PRN for PAIN AND OR ELEVATED TEMP, #30 TAB Prov:WILMA DE PA-C 05/31/19 Ibuprofen* (Motrin*) 600 Mg Tab, 600 MG PO Q6, #15 TAB Prov:ANA DIAMOND MD 04/28/19 Meclizine Hcl* (Meclizine Hcl*) 25 Mg Tablet, 25 MG PO TID, #30 TAB Prov:ROSETTE HITCHCOCK. DO 06/17/17 Alprazolam* (Xanax*) 0.5 Mg Tab, 0.5 MG PO TID, #20 TAB Prov:ROSETTE HITCHCOCK DO 06/17/17 Meloxicam* (Meloxicam*) 7.5 Mg Tablet, 7.5 MG PO DAILY for PAIN, #20 TAB Prov:ALEA CRAFT MD 03/12/17 Alprazolam* (Xanax*) 0.5 Mg Tab, 0.5 MG PO TID for ANXIETY, #15 TAB Prov:ALEA CRAFT MD 03/12/17 Reported Medications Lisinopril-Hydrochlorothiazide (Lisinopril-HCTZ) 20-25 Mg Tab, 1 TAB PO DAILY, TAB 02/06/15 Allergies Allergies: Coded Allergies: No Known Allergy (Unverified , 11/11/15) PMhx/Soc History of Surgery: Yes (tubal ligation) Anesthesia Reaction: No Hx Neurological Disorder: Yes (mini stroke) Hx Respiratory Disorders: No Hx Cardiac Disorders: Yes ("heart problems" HTN) Hx Psychiatric Problems: No Hx Miscellaneous Medical Probl: Yes (prolapse uterus dx 2018,seasonal allergy) Hx Alcohol Use: No Hx Substance Use: No Hx Tobacco Use: No FmHx Family History: No diabetes, No coronary disease, No other Physical Exam Vitals Vital Signs Date Temp Pulse Resp B/P (MAP) Pulse Ox O2 O2 Flow FiO2 Time Delivery Rate 05/31/19 98.9 79 16 140/66 96 20:02 (90) Physical Exam Const: No acute distress Head: Atraumatic Eyes: Normal Conjunctiva ENT: Normal External Ears, Nose and Mouth. Neck: Full range of motion. No meningismus. Resp: Clear to auscultation bilaterally Cardio: Regular rate and rhythm, no murmurs Abd: Soft, non tender, non distended. Normal bowel sounds Skin: No petechiae or rashes Back: No midline or flank tenderness Ext: Right wrist with swelling at the lateral edge of wrist, anterior forearm, moves all fingers, SI LT throughout, left knee with areas of skin excoriation, skin excoriation to right knee and thigh Neur: Awake and alert Psych: Normal Mood and Affect Results 24 hrs Current Medications Medications Dose Sig/Saritha Start Time Status Last (Trade) Ordered Route PRN Stop Time Admin Dose Reason Admin Ketorolac 30 mg ONCE STAT 05/31/19 DC 05/31/19 Tromethamine IM 20:54 21:45 (Toradol) 05/31/19 20:55 Bacitracin 1 applic ONCE ONCE 05/31/19 DC 05/31/19 (Bacitracin TOP 22:00 21:56 Oint (Ud)) 05/31/19 22:01 Procedures/MDM 69-year-old female presents with complaint of right wrist pain status post chemical fall. I have low suspicion for acute process warranting further emergent care other than findings below. ED course: X-ray of right wrist and forearm without acute finding Left knee x-ray without acute finding Toradol given Will discharge with appropriate pain medications, PMD follow-up DISPOSITION PLAN: We discussed follow up with the patient's primary care doctor within 24 to 48 hours. Patient counseled regarding my diagnostic impression and care plan. Prior to discharge all questions answered. Pt agrees with treatment plan and understands strict return precautions. Precautionary instructions provided including instructions to return to the ER if not improving or for any worsening or changing symptoms or concerns. Disclaimer: Inadvertent spelling and grammatical errors are likely due to EHR/dictation software use and do not reflect on the overall quality of patient care. Also, please note that the electronic time recorded on this note does not necessarily reflect the actual time of the patient encounter. Departure Diagnosis: Primary Impression: Injury of upper extremity Condition: Stable Comments Patient evaluated with PA, agree with assessment and plan WILMA Dewitt PA-C May 31, 2019 20:59 JUNG LEAL DO Jun 03, 2019 20:09
[2019-05-31] MEDS ORDERED: BACITRACIN 0.9 GM OINT TOP ONE (22:00)
== END 2019-05-31 22:32 | disposition home or self-care (01) ==
LOC: FTE 19:53
DX: S80.212A Abrasion, left knee, initial encounter (principal); I10 Essential (primary) hypertension; S69.91XA Unspecified injury of right wrist, hand and finger(s), initial encounter; S80.211A Abrasion, right knee, initial encounter; S70.311A Abrasion, right thigh, initial encounter; W01.0XXA Fall on same level from slipping, tripping and stumbling without subsequent striking against object, initial encounter; Y92.9 Unspecified place or not applicable; Z86.73 Personal history of transient ischemic attack (TIA), and cerebral infarction without residual deficits
CPT/HCPCS: 73090; 73110; 73562; 96372; J1885; Z7502; Z7610

== ENCOUNTER 2019-07-12 18:46 | Observation (INO) | payer MEDICAID ==
[~2019-07-12] VITALS: Ht 162.6 cm; Wt 75.5 kg
[~2019-07-12 18:46] MED LIST changes: +ALPR0.25 PO; +ASPI-535 PO; +ATOR20TA38 PO; +ERGO500013 PO; +GABA300C16 PO; +HYDR25TA6 PO; +LISI2.5T59 PO; +METF-849 PO; +PANT40TA4 PO; +TRAM50TA2 PO
[2019-07-12] MEDS ORDERED: morphine 4 MG/ML VIAL IV STA (19:04)
[2019-07-12] MEDS ORDERED: NITROGLYCERIN 2% 1 GM OINT PKT TD STA (19:04)
[2019-07-12] MEDS ORDERED: ASPIRIN 325 MG TAB PO STA (19:04)
[2019-07-12] MEDS ORDERED: ONDANSETRON 4 MG INJ IV STA (19:04)
[2019-07-12] MEDS ORDERED: ACETAMINOPHEN 325 MG TAB PO PRN ×2 (21:30→22:00)
[2019-07-12] MEDS ORDERED: DOCUSATE SODIUM 100 MG CAP PO PRN (21:30)
[2019-07-12] MEDS ORDERED: ONDANSETRON 4 MG INJ IV PRN ×2 (21:30→22:00)
[2019-07-12] MEDS ORDERED: morphine 2 MG INJ IV PRN (21:30)
[2019-07-12] MEDS ORDERED: NACL 0.9% 3 ML SYG IV SCH (21:30)
[2019-07-12] MEDS ORDERED: BISACODYL (EC) 5 MG TAB PO PRN (21:30)
[2019-07-12] MEDS ORDERED: NITROGLYCERIN (SL) 0.4 MG TAB SL PRN (21:30)
[2019-07-12 23:13] VITALS: BP 149/71; PULSE 56
[2019-07-12 23:47] VITALS: Ht 162.6 cm; Wt 75.5 kg
[2019-07-13 04:16] VITALS: BP 122/55; PULSE 55; RESP 17
[2019-07-13 07:24] VITALS: BP 117/56; PULSE 58; RESP 20
[2019-07-13] MEDS: ASPIRIN (EC) 81 MG TAB PO SCH (08:30)
[2019-07-13] MEDS: HYDROCHLOROTHIAZIDE 25 MG TAB PO SCH (08:31)
[2019-07-13] MEDS ORDERED: ASPIRIN 81 MG TAB PO SCH (09:00)
[2019-07-13] MEDS ORDERED: DEXTROSE 50% 50 ML SYRINGE IV PRN ×2 (10:30)
[2019-07-13] MEDS ORDERED: GLUCOSE GEL 15 GRAM TUBE BUCCAL PRN (10:30)
[2019-07-13] MEDS ORDERED: GLUCOSE GEL 15 GRAM TUBE PO PRN ×2 (10:30)
[2019-07-13] MEDS ORDERED: GLUCAGON 1 MG INJ IM PRN (10:30)
[2019-07-13 11:03] VITALS: BP 110/60; PULSE 55; RESP 20
[2019-07-13] MEDS ORDERED: LIDOCAINE/MYLANTA 40 ML BTL PO ONE (11:30)
[2019-07-13] MEDS: INSULIN ASPART [NOVOLOG] 3 ML PEN SC SCH ×3 (11:50→21:00)
[2019-07-13] MEDS: PANTOPRAZOLE (EC) 40 MG TAB PO SCH (12:27)
[2019-07-13] MEDS: GABAPENTIN 300 MG CAP PO SCH ×2 (12:27→21:05)
[2019-07-13 14:53] VITALS: BP 105/54; PULSE 60; RESP 20
[2019-07-13] MEDS ORDERED: ERGOCALCIFEROL 50,000 UNIT CAP PO SCH (15:00)
[2019-07-13] MEDS ORDERED: ATORVASTATIN 20 MG TAB PO SCH (21:00)
[2019-07-14 00:17] VITALS: BP 94/55; PULSE 18; RESP 18
[2019-07-14] MEDS ORDERED: ACCU-CHEK XX SCH (02:00)
[2019-07-14] MEDS ORDERED: NAPROXEN 500 MG TAB PO ONE (04:30)
[2019-07-14 04:48] VITALS: BP 109/57; PULSE 57; RESP 16
[2019-07-14] MEDS: PANTOPRAZOLE (EC) 40 MG TAB PO SCH (05:34)
[2019-07-14 07:19] VITALS: BP 106/56; PULSE 57; RESP 20
[2019-07-14] MEDS: INSULIN ASPART [NOVOLOG] 3 ML PEN SC SCH (07:55)
[2019-07-14] MEDS: ASPIRIN (EC) 81 MG TAB PO SCH (10:09)
[2019-07-14] MEDS: HYDROCHLOROTHIAZIDE 25 MG TAB PO SCH (10:09)
[2019-07-14] MEDS: GABAPENTIN 300 MG CAP PO SCH (10:09)
== END 2019-07-14 11:27 | disposition home or self-care (01) ==
LOC: E/R 18:46 → TEL 21:28
PROVIDERS: ADMIT Family Medicine; ATTEND Family Medicine
DX: R07.89 Other chest pain (principal); R10.13 Epigastric pain; K21.9 Gastro-esophageal reflux disease without esophagitis; E11.40 Type 2 diabetes mellitus with diabetic neuropathy, unspecified; I10 Essential (primary) hypertension; E78.5 Hyperlipidemia, unspecified; N17.9 Acute kidney failure, unspecified; E03.9 Hypothyroidism, unspecified; D25.9 Leiomyoma of uterus, unspecified; F41.9 Anxiety disorder, unspecified; D64.9 Anemia, unspecified; Z86.73 Personal history of transient ischemic attack (TIA), and cerebral infarction without residual deficits; Z79.82 Long term (current) use of aspirin; Z79.84 Long term (current) use of oral hypoglycemic drugs
CPT/HCPCS: 36415; 71045; 74176; 80048; 80053; 80061; 82306; 82550; 82553; 82607; 82652; 82962; 83036; 83735; 84439; 84443; 84481; 84484; 85025; 93005; 93306; 96374; 96375; J1815; J2270; J2405; Z7500; Z7502; Z7610; G0378